=== PATIENT | male | born 1950 | race Caucasian/White ===

== ENCOUNTER 2017-05-12 13:04 | Inpatient (IN) | payer OTHER ==
[~2017-05-12] VITALS: Ht 170.2 cm; Wt 87.5 kg
--- NOTE | ~2017-05-12 | CT2 ---
[facility] A Service of [facility] & [facility] RADIOLOGY TEXT RESULTS PATIENT: ELLSI CURRIE LOCATION: [address]-19 : [birth year] UNIT #: [id number] AGE: [address]: Tiffanie Truong MD SEX: M ORDER DR: [id number] [facility] [address] [place], [place] [address] [id number] I MR#: [id number] #: [id number] NAME: ELLIS CURRIE : 1950 SEX: M STUDY DATE/TIME: 05/13/2017 12:54 UNIT: [facility] ROOM: [facility] STUDY DESCRIPTION: CT Abd and Pelv W Cont Attending Physician: Tiffanie Truong M.D. Ordering Physician: Sage Moore M.D. Primary Care Physician: Scott Ortega M.D. MEDICAL IMAGING REPORT This report is preliminary unless electronic signature is present EXAM CT abdomen and pelvis with contrast, 05/13/2017, 1254 hours. CLINICAL HISTORY 66-year-old man with complaint of abdominal pain. Patient had brain lesions most suggestive of brain metastasis discovered on CT and MRI yesterday. Evaluate for primary tumor. COMPARISON CT abdomen, 06/12/2014. TECHNIQUE Dynamic helical CT images were obtained from the lung bases through the pubic symphysis with intravenous contrast only. Sagittal and coronal reconstructions were performed. Contrast was Isovue-370 100 mL. Total exam DLP for the chest, abdomen, and pelvis exam 1212 mGy-cm. This CT exam was performed with one or more of the following radiation dose reduction techniques: automatic exposure control, adjustment of mA and/or kV according to patient size, and iterative reconstruction. FINDINGS Images through the abdomen demonstrate normal-sized liver without focal liver lesion. The spleen, pancreas, and bile ducts are normal. The gallbladder contains dense material without gallbladder wall thickening or pericholecystic fluid. This is likely sludge. The adrenal glands are normal. The kidneys demonstrate no mass or stone or obstruction. There is diffuse atherosclerotic calcification of the aorta with narrowing of the distal aorta and common iliac artery similar to prior exam. The stomach is not well-distended or opacified but appears normal. There is no small bowel distension or small bowel wall thickening. The appendix STS. [facility] A Service of [facility] RADIOLOGY TEXT RESULTS PATIENT: ELLIS CURRIE LOCATION: [facility]3-19 : 50 UNIT #: [id number] AGE: [address]: Tiffanie Truong MD SEX: M ORDER DR: is normal. The right colon and transverse colon are normal. Descending colon demonstrates no wall thickening or diverticula. There are several colonic diverticula in the sigmoid colon. Wall thickening cannot be excluded. The rectum appears normal. There is no lymphadenopathy in the abdomen or pelvis. There is a Otero catheter in the bladder with air in the bladder. The bladder is moderately well distended. There is bladder wall thickening right greater than left increased from 06/22/2014. Question whether this is related to cystitis. Malignancy cannot be excluded. IMPRESSION 1. There is no liver lesion or evidence of adenopathy in the abdomen or pelvis. 2. Severe diverticulosis of the sigmoid colon. The wall is difficult to assess in this area. Consider followup colonoscopy if not recently performed. 3. There is a Otero catheter in the bladder with air in the bladder, presumably introduced at time of catheter placement. The bladder is moderately well distended with diffuse bladder wall thickening. This wall thickening has increased from 2014. Findings could be related to cystitis. Malignancy cannot be excluded. Consider followup cystoscopy. STAT * RESULT Dictated by... Abiola Bentley M.D. THIS IS AN ELECTRONICALLY VERIFIED REPORT Abiola Bentley M.D. at 05/13/2017 2:30 PM CRISTIAN/vonda TD: 05/13/2017 13:42 JOB #: [id number] MEDICAL IMAGING REPORT Page 1 of 1 COPY
--- NOTE | ~2017-05-12 | EKG ---
PATIENT: ELLIS CURRIE UNIT #: [id number] Ventricular Rate: 64 BPM Atrial Rate: 64 BPM P-R Interval: 154 ms QRS Duration: 94 ms Q-T Interval: 424 ms QTC Calculation(Bezet): 437 ms P Sublimity: 72 degrees Calculated R Sublimity: 58 degrees Calculated T Sublimity: 34 degrees Diagnosis Line: Normal sinus rhythm Diagnosis Line: Normal ECG Diagnosis Line: No previous ECGs available Diagnosis Line: Confirmed by SIMON CARROLL MD ([id number]) on 05/13/2017 Diagnosis Line: 12:07:57 AM INTERPRETING MD: CARLY HATHAWAY
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
--- NOTE | ~2017-05-12 | CR72 ---
[facility] A Service of [facility] & [facility] RADIOLOGY TEXT RESULTS PATIENT: ELLIS CURRIE LOCATION: [address]-19 : [birth year] UNIT #: [id number] AGE: [address]: Tiffanie Truong MD SEX: M ORDER DR: [id number] [facility] [address] [place], [place] [address] [id number] I MR#: [id number] Acc #: [id number] NAME: ELLIS CURRIE : 1950 SEX: M STUDY DATE/TIME: 05/12/2017 13:42 UNIT: [facility] ROOM: [facility] STUDY DESCRIPTION: CR Chest Single View Portable Attending Physician: Tiffanie Truong M.D. Ordering Physician: Concha Grant M.D. Primary Care Physician: Scott Ortega M.D. MEDICAL IMAGING REPORT This report is preliminary unless electronic signature is present EXAM Portable chest, 05/12. INDICATIONS Intubation. Seizures today. History of hypertension. FINDINGS AP portable chest is compared with 10/15/2008. Cardiac and mediastinal contours are normal. Lungs are clear except for granulomatous calcifications. No pneumothorax is seen. ET tube in the mid trachea. IMPRESSION ET tube in mid trachea. No acute findings in the chest. Dictated by... Cecilio Casper Jr., M.D. THIS IS AN ELECTRONICALLY VERIFIED REPORT Cecilio Casper Jr., M.D. at 05/13/2017 8:49 AM MED/ryland TD: 05/12/2017 20:22 JOB #: [id number] MEDICAL IMAGING REPORT Page 1 of 1 COPY
--- NOTE | ~2017-05-12 | CO ---
Unit #: [id number] #: [id number] Patient: ELLIS CURRIE [id number] [address] [place], [place] [address] [id number] I MR#: [id number] NAME: ELLIS CURRIE ROOM: 231 Age: 66 Sex: M Admission Date: 05/12/2017 : 1950 Attending Physician: Tiffanie Truong M.D. Primary Care Physician: Scott Ortega M.D. CONSULTATION REPORT CHIEF COMPLAINT Seizure. HISTORY OF PRESENT ILLNESS A 66-year-old gentleman with history of tobacco use, admitted following seizure, feeling better, found with microhematuria. Urinalysis; 2 to 5 red blood cells per high-power field. CT of the abdomen and pelvis with contrast on 05/13/2017, bladder wall thickening, Otero catheter indwelling. The patient has a history of mild weak stream at baseline. No gross hematuria, bone pain, or weight loss. PAST MEDICAL HISTORY Hypertension and skin cancer, as above. PAST SURGICAL HISTORY Hernia surgery, skin cancer treatment. SOCIAL HISTORY History of tobacco. No alcohol. No recreational drugs. MEDICATIONS Reviewed. REVIEW OF SYSTEMS The patient denies headache, vision change, hearing change, cough, sore throat, chest pain, shortness of breath, diarrhea, constipation, numbness or tingling in the extremities, rashes or easy bruising. PHYSICAL EXAMINATION VITAL SIGNS: Afebrile. Vital signs stable. HEENT: Normocephalic and atraumatic. Extraocular muscles intact grossly. Normal hearing to gross inspection. NECK: Soft, supple. No supraclavicular lymphadenopathy. RESPIRATORY: Normal respiratory effort. Normal to palpation. ABDOMEN: Soft, nontender, and nondistended. No CVA tenderness. EXTREMITIES: Full range of motion. No edema in bilateral extremities. PSYCH: Normal mood and affect. NEUROLOGIC: Cranial nerves 2 through 12 are grossly intact. DIAGNOSTIC STUDIES LABORATORY RESULTS: Creatinine 0.8. White blood cell 9.1, hemoglobin 14.8. Urinalysis; 2 to 5 red blood cells per high-power field, 10 to 25 white Unit #: [id number] #: [id number] Patient: ELLIS CURRIE blood cells per high-powered field. No bacteria noted. IMAGING STUDIES: CT of abdomen and pelvis, bladder wall thickening. ASSESSMENT Microhematuria, pyuria, bladder wall thickening, history of tobacco use, weak stream. PLAN Outpatient cystoscopy for further evaluation. Discussed risk of missed malignancy for failure to comply with followup. The patient has agreed to follow up. We will arrange. Dictated by... Arley Clark M.D. BEVERLY/elizabeth TD: 05/15/2017 07:00 JOB #: [id number] CONSULTATION REPORT Page 1 of 1 X Arley Clark MD X CONSULTATION REPORT
--- NOTE | ~2017-05-12 | MR17 ---
[facility] A Service of [facility] & [facility] RADIOLOGY TEXT RESULTS PATIENT: ELLIS CURRIE LOCATION: [address]-19 : [birth year] UNIT #: [id number] AGE: [address]: Tiffanie Truong MD SEX: M ORDER DR: [id number] [facility] [address] [place], [place] [address] [id number] I MR#: [id number] Acc #: [id number] NAME: ELLIS CURRIE : 1950 SEX: M STUDY DATE/TIME: 05/12/2017 21:34 UNIT: [facility] ROOM: [facility] STUDY DESCRIPTION: MR Brain WWo Contrast Attending Physician: Tiffanie Truong M.D. Ordering Physician: Tiffanie Truong M.D. Primary Care Physician: Scott Ortega M.D. MRI CENTER REPORT This report is preliminary unless electronic signature is present. EXAM MRI of the brain with and without contrast, dated 05/12/2017. COMPARISON CT head without contrast dated 05/12/2017. HISTORY Seizure today. High blood pressure and history of (1)_:16___. TECHNIQUE Multisequence, multiplanar imaging of the brain was obtained with and without contrast. GFR measures greater than 60. 18 cc of MultiHance was administered intravenously. FINDINGS Abnormal study. There are enhancing masses in the posterior right occipital cortex and adjacent subcortical white matter measuring 1.3 x 1.3 cm, and in the posterior and superior right temporal cortex at the level of the right sylvian fissure. It measures 6 x 7 mm. Vasogenic edema is noted with both the lesions, worst in the right parietal lobe. There is an enhancing vessel in the left superolateral frontal cortex extending to the subcortical white matter, suggestive of a developmental venous anomaly. No coexisting other vascular anomalies or hemorrhage is seen. Nonspecific, nonenhancing multiple hyperintense T2 signal lesions are noted in the subcortical and periventricular white matter. Vascular flow voids of the nasal cerebral arteries and dural venous sinuses are not occluded in these thicker slices. S-shaped nasoseptal deviation is noted with varying degrees of paranasal sinus mucosal thickening. Mild bilateral mastoid mucosal thickening is also noted, slightly worse in the left. Orbits of the ocular structures are intact. Mild degenerative changes are noted of the cervical spine. Thin coronal T2 sequence through the hippocampal formations demonstrate STS. [facility] A Service of [facility] & [facility] RADIOLOGY TEXT RESULTS PATIENT: ELLIS CURRIE LOCATION: [facility]3-19 : 50 UNIT #: [id number] AGE: [address]: Tiffanie Truong MD SEX: M ORDER DR: normal size, shape and symmetry. No increase in T2 signal within the left hippocampal formation (series 9, images 22) cannot be excluded. IMPRESSION 1. There are 2 enhancing lesions noted in the brain involving the right parietal and posterior right temporal lobes, 1.3 cm in the right parietal lobe with significant surrounding Vasogenic edema. Metastasis is in the differential consideration along with other diseases. Correlate clinically. There is no associated restrictive diffusion to suggest abscess. 2. Scattered multiple hyperintense T2 signal lesions are noted in the brain, predominantly in the supratentorial white matter. These are likely related to mild chronic microvascular ischemic change or migraine based on age and statistics. 3. Faint increased T2 signal within the left hippocampus cannot be excluded. The patient is known to have had seizure. This could be related to it. There is, however, no asymmetrical atrophy or contour change seen. 4. 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 No coexisting other vascular anomalies or hemorrhage. Dictated by... Ly Guthrie M.D. THIS IS AN ELECTRONICALLY VERIFIED REPORT Ly Guthrie M.D. at 05/13/2017 3:29 PM CPR/gz TD: 05/13/2017 12:24 JOB #: [id number] MRI CENTER REPORT Page 1 of 1 COPY
--- NOTE | ~2017-05-12 | A ---
[facility] & [facility] Nutrition Therapy DATE: 05/13/17 Patient: ELLIS CURRIE Physician: LULA Address: [address] [place] [address] Room/Bed: [address], Zip: [place] [address] Admit Date: 05/12/17 Date of : [birth year] Height: 5 7 Weight: 192 87.5 NUTRITIONAL ASSESSMENT: RD initially assessed pt but he is now extubated on healthy heart diet, doing fine with PO intake per RN via bedside swallow eval. Will assess at 10 day length of stay. Pinky Le RD, LD
--- NOTE | ~2017-05-12 | CT55 ---
[facility] A Service of [facility] & [facility] RADIOLOGY TEXT RESULTS PATIENT: ELLIS CURRIE LOCATION: [address]-19 : [birth year] UNIT #: [id number] AGE: [address]: Tiffanie Truong MD SEX: M ORDER DR: [id number] [facility] [address] [place], [place] [address] [id number] I MR#: [id number] Acc #: [id number] NAME: ELLIS CURRIE : 1950 SEX: M STUDY DATE/TIME: 05/13/2017 12:54 UNIT: [facility] ROOM: [facility] STUDY DESCRIPTION: CT Chest W Con Attending Physician: Tiffanie Truong M.D. Ordering Physician: Sage Moore M.D. Primary Care Physician: Sctot Ortega M.D. MEDICAL IMAGING REPORT This report is preliminary unless electronic signature is present EXAM CT chest with contrast 05/13/2017 1254 hours HISTORY 66-year-old man who was found to have a brain lesions on CT and MRI yesterday, likely metastatic disease. Evaluate for primary tumor. Patient complains of pain in the abdomen and pelvis. COMPARISON Chest x-ray 05/12/2017. No prior chest CT TECHNIQUE Dynamic helical CT images were obtained from the thoracic inlet through the adrenal glands. Sagittal and coronal reconstructions were performed. Contrast was Isovue-370 100 mL IV. Total exam DLP for the chest abdomen and pelvis CT scan today is 1212 mGy-cm. This CT exam was performed with one or more of the following radiation dose reduction techniques: automatic control, adjustment of mA and/or kV according to patient size, and iterative reconstruction. FINDINGS The images are mildly degraded by motion artifact. The thyroid appears normal. There is no definite adenopathy in the supraclavicular region. Images through the chest demonstrate a normal appearance to the aorta, pulmonary arteries, cardiac chambers and pericardium. The esophagus appears normal. There is a low-density lymph node anterior to the right mainstem bronchus measuring 1.4 cm with right hilar node measuring 2.5 cm. No other adenopathy is seen. The lung window images demonstrate moderate centrilobular emphysema in the STS. [facility] A Service of [facility] RADIOLOGY TEXT RESULTS PATIENT: ELLIS CURRIE LOCATION: [facility]3-19 : [birth year] UNIT #: [id number] AGE: [address]: Tiffanie Truong MD SEX: M ORDER DR: upper lobes. There is a ground-glass well-circumscribed nodule in the right middle lobe medially on image 31 measuring 10 mm. There is an additional nodule in the right middle lobe on image 34 measuring 8 mm. This is also mostly well-circumscribed. There is linear density at the left greater than right lung base favoring atelectasis. There is a calcified granuloma in the lingular segment of the left upper lobe. Please see separate CT abdomen and pelvis report for findings below the diaphragms. IMPRESSION 1. There is low-density lymph node anterior to the right mainstem bronchus measuring 1.4 cm and right hilar node measuring 2.5 cm. There are 2 nodules in the right middle lobe which are mostly well-circumscribed and noncalcified measuring 10 mm and 8 mm. Findings could represent primary lung carcinoma or metastatic disease. 2. Band-like atelectasis at the left base greater than right base. There is no pleural effusion. 3. There are underlying emphysematous changes. 4. No bone lesions seen. Dictated by... Abiola Bentley M.D. THIS IS AN ELECTRONICALLY VERIFIED REPORT Abiola Bentley M.D. at 05/13/2017 8:27 PM CRISTIAN/calli TD: 05/13/2017 19:28 JOB #: [id number] MEDICAL IMAGING REPORT Page 1 of 1 COPY
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
--- NOTE | ~2017-05-12 | EE ---
Unit #: [id number] #: [id number] Patient: ELLIS CURRIE [id number] [address] [address] [id number] I MR#: [id number] NAME: ELLIS CURRIE : 1950 SEX: M STUDY DATE/TIME: 05/13/2017 UNIT: C2A ROOM: 231 STUDY DESCRIPTION: EEG Attending Physician: Tiffanie Truong M.D. Primary Care Physician: Scott Ortega M.D. NEURODIAGNOSTICS REPORT EXAM EEG DATE OF STUDY 05/13/[address] Tiffanie Truong. REASON FOR THE STUDY Seizures. EEG DESCRIPTION This is an inpatient, portable digital recorded multi-montage adult EEG with leads placed according to the International 10-20 system. Hyperventilation and photic stimulation were not done. This EEG shows diffuse background slowing of 67 Hz. There was movement artifact. There was nothing suggesting seizures. There was nothing suggesting status. No interictal discharges were seen. No clinical events were seen. Hyperventilation and photic stimulation were not done. was seen. The patient was on a ventilator, a little bit agitated. IMPRESSION This is abnormal EEG showing diffuse slowing which is indicative of encephalopathy that is nonspecific. An EEG like this does not rule out epilepsy. Clinical correlation is recommended. Dictated by... Claire Soriano/marcia TD: 05/15/2017 07:25 JOB #: [id number] Unit #: [id number] #: [id number] Patient: ELLIS CURRIE NEURODIAGNOSTICS REPORT Page 1 of 1 X Mark Piña MD NEURODIAGNOSTICS REPORT
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
[~2017-05-12 13:04] MED LIST: AUGMENTIN PO; LIPITOR PO; LISINOPRIL PO; SULAR PO; TYLENOL #3 PO; WALGREENS PHARMACY; ZITHROMAX PO; [UNRECOGNIZED DRUG - REMARK]
[2017-05-12] MEDS ORDERED: ATENOLOL PO (13:53)
[2017-05-12] MEDS ORDERED: PATIENT'S PHARMACY (13:53)
[2017-05-12] MEDS ORDERED: NORVASC10 MG PO (13:53)
[2017-05-12 13:56] LABS: URINE SOURCE CLEAN CATCH
[2017-05-12 14:00] LABS: ARTERIAL BLD GAS O2 SATURATION 88.8 % (90.0-100.0); ARTERIAL BLOOD GAS CARBOXY HB 3.7 %sat (0.0-9.0); ARTERIAL BLOOD GAS HCO3 22.3 mmol/L; ARTERIAL BLOOD GAS MET HB 1.1 %sat (0.0-2.0); ARTERIAL BLOOD GAS pH 7.222 (7.350-7.450)
[2017-05-12 14:01] LABS: URINE APPEARANCE CLOUDY; URINE BILIRUBIN NEG (NEG); URINE BLOOD TRACE (NEG); URINE COLOR YELLOW; URINE GLUCOSE NEG (NEG); URINE KETONE NEG (NEG); URINE LEUKOCYTE ESTERASE NEG (NEG); URINE NITRATE NEG (NEG); URINE PROTEIN 3+ (NEG); URINE UROBILINOGEN 0.2 MG/DL (NEG)
[2017-05-12 14:01] LABS: ARTERIAL BLOOD GAS ALLEN TEST N; ARTERIAL BLOOD GAS ART SITE LEFT RADIAL; ARTERIAL BLOOD GAS DELIVERY VENT; ARTERIAL BLOOD GAS PCO2 54.3 mmHg (35.0-45.0); ARTERIAL BLOOD GAS VENT MODE AC; ARTERIAL DRAW? YES
[2017-05-12 14:03] LABS: CULTURE INDICATED? YES; URINE BACTERIA AUWI NEG (NEGATIVE); URINE SQUAMOUS EPITHELIAL CELL MANY /[HPF]
[2017-05-12 14:03] LABS: BASOPHIL# 0.1 X10e3 (0-0.3); BASOPHIL% 0.9 % (0-2.5); EOSINOPHIL# 0.2 X10e3 (0-0.7); EOSINOPHIL% 2.2 % (0.0-7.0); HEMOGLOBIN 17.1 gm/dL (13.0-16.0); LYMPHOCYTE# 1.3 X10e3 (1.0-3.5); LYMPHOCYTE% 12.4 % (17.0-45.0); MEAN CELL VOLUME 98.2 FL (83-96); MEAN CORPUSCULAR HEMOGLOBIN 33.5 PG (28-34); MEAN CORPUSCULAR HGB CONC 34.1 g/dL (30-36); MEAN PLATELET VOLUME 10.5 FL (6.5-11.5); MONOCYTE# 0.8 X10e3 (0-1.0); MONOCYTE% 7.7 % (3.0-12.0); NEUTROPHIL% 76.8 % (40-75); PLATELET COUNT 120 X10e3 (140-420); RED BLOOD COUNT 5.09 X10e (3.90-5.60); RED CELL DISTRIBUTION WIDTH 12.6 % (11.0-15.5); WHITE BLOOD COUNT 10.4 X10e3 (4.0-10.5)
[2017-05-12 14:05] LABS: DIFF IND NO
[2017-05-12 14:27] LABS: INR 1.1; PARTIAL THROMBOPLASTIN TIME 20.3 SECONDS (23.5-31.3); PROTHROMBIN TIME (PATIENT) 11.4 SECONDS (10.0-11.7)
[2017-05-12 14:28] LABS: ALBUMIN SERUM 4.1 g/dL (3.5-5.0); BILIRUBIN, DIRECT 0.2 mg/dL (0.0-0.2); BILIRUBIN,INDIRECT 0.4 mg/dL (0.0-0.9); BILIRUBIN,TOTAL 0.6 mg/dL (0.2-2.0); CALCIUM SERUM 8.9 mg/dL (8.4-10.2); GLOM FILT RATE Estimated 78.1 mL/min (>60); POTASSIUM 3.7 mmol/L (3.5-5.1); PROTEIN TOTAL SERUM 6.8 g/dL (6.0-8.3)
[2017-05-12 19:08] LABS: AMPHETAMINE NEG (NEG); BARBITURATES NEG (NEG); BENZODIAZEPINES NEG (NEG); COCAINE NEG (NEG); MARIJUANA NEG (NEG); OPIATES NEG (NEG); TRICYCLIC ANTIDEPRESSANTS NEG (NEG); U METHADONE NEG (NEG)
[2017-05-13 04:24] LABS: ARTERIAL BLD GAS O2 SATURATION 98.8 % (90.0-100.0); ARTERIAL BLOOD GAS CARBOXY HB 0.4 %sat (0.0-9.0); ARTERIAL BLOOD GAS HCO3 23.5 mmol/L; ARTERIAL BLOOD GAS MET HB 0.7 %sat (0.0-2.0); ARTERIAL BLOOD GAS PCO2 37.2 mmHg (35.0-45.0)
[2017-05-13 04:32] LABS: ARTERIAL BLOOD GAS ALLEN TEST NORMAL; ARTERIAL DRAW? YES
[2017-05-13 04:33] LABS: ARTERIAL BLOOD GAS ART SITE RIGHT RADIAL; ARTERIAL BLOOD GAS DELIVERY VENT; ARTERIAL BLOOD GAS VENT MODE A/C
[2017-05-13 05:11] LABS: BASOPHIL# 0.1 X10e3 (0-0.3); BASOPHIL% 0.5 % (0-2.5); HEMATOCRIT 47.4 % (38.0-50.0); HEMOGLOBIN 16.2 gm/dL (13.0-16.0); LYMPHOCYTE# 1.2 X10e3 (1.0-3.5); LYMPHOCYTE% 7.2 % (17.0-45.0); MEAN CELL VOLUME 97.3 FL (83-96); MEAN CORPUSCULAR HEMOGLOBIN 33.2 PG (28-34); MEAN CORPUSCULAR HGB CONC 34.1 g/dL (30-36); MEAN PLATELET VOLUME 10.5 FL (6.5-11.5); MONOCYTE# 1.2 X10e3 (0-1.0); MONOCYTE% 6.9 % (3.0-12.0); NEUTROPHIL# 14.6 X10e3 (1.5-7.1); NEUTROPHIL% 85.4 % (40-75); PLATELET COUNT 125 X10e3 (140-420); RED BLOOD COUNT 4.87 X10e (3.90-5.60); RED CELL DISTRIBUTION WIDTH 12.9 % (11.0-15.5)
[2017-05-13 05:12] LABS: DIFF IND YES; WHITE BLOOD COUNT 17.1 X10e3 (4.0-10.5)
[2017-05-13 05:36] LABS: PLATELET ESTIMATE DECREASED (NORMAL); RBC NORMAL YES
[2017-05-13 06:14] LABS: BUN/CREATININE RATIO 13.33; CREATININE SERUM 0.9 mg/dL (0.6-1.4); GLOM FILT RATE Estimated 88.7 mL/min (>60); POTASSIUM 4.6 mmol/L (3.5-5.1)
[2017-05-14 06:00] LABS: BASOPHIL# 0.1 X10e3 (0-0.3); BASOPHIL% 0.7 % (0-2.5); EOSINOPHIL# 0.1 X10e3 (0-0.7); EOSINOPHIL% 0.6 % (0.0-7.0); HEMATOCRIT 45.2 % (38.0-50.0); HEMOGLOBIN 15.3 gm/dL (13.0-16.0); LYMPHOCYTE# 1.5 X10e3 (1.0-3.5); LYMPHOCYTE% 13.2 % (17.0-45.0); MEAN CORPUSCULAR HEMOGLOBIN 33.1 PG (28-34); MEAN CORPUSCULAR HGB CONC 33.8 g/dL (30-36); MEAN PLATELET VOLUME 10.7 FL (6.5-11.5); MONOCYTE# 1.2 X10e3 (0-1.0); MONOCYTE% 10.4 % (3.0-12.0); NEUTROPHIL# 8.5 X10e3 (1.5-7.1); NEUTROPHIL% 75.1 % (40-75); PLATELET COUNT 101 X10e3 (140-420); RED BLOOD COUNT 4.61 X10e (3.90-5.60); RED CELL DISTRIBUTION WIDTH 12.6 % (11.0-15.5); WHITE BLOOD COUNT 11.3 X10e3 (4.0-10.5)
[2017-05-14 06:01] LABS: DIFF IND NO
[2017-05-14 06:50] LABS: BUN/CREATININE RATIO 11.11; CALCIUM SERUM 8.3 mg/dL (8.4-10.2); CREATININE SERUM 0.9 mg/dL (0.6-1.4); GLOM FILT RATE Estimated 88.7 mL/min (>60); POTASSIUM 3.6 mmol/L (3.5-5.1)
[2017-05-14 15:05] LABS: ALBUMIN SERUM 3.7 g/dL (3.5-5.0); BUN/CREATININE RATIO 11.25; CALCIUM SERUM 8.5 mg/dL (8.4-10.2); CREATININE SERUM 0.8 mg/dL (0.6-1.4); GLOM FILT RATE Estimated 93.1 mL/min (>60); POTASSIUM 3.7 mmol/L (3.5-5.1); PROTEIN TOTAL SERUM 6.3 g/dL (6.0-8.3)
[2017-05-15 06:03] LABS: BASOPHIL# 0.1 X10e3 (0-0.3); BASOPHIL% 0.6 % (0-2.5); EOSINOPHIL# 0.2 X10e3 (0-0.7); EOSINOPHIL% 1.9 % (0.0-7.0); HEMOGLOBIN 14.8 gm/dL (13.0-16.0); LYMPHOCYTE# 1.5 X10e3 (1.0-3.5); LYMPHOCYTE% 16.5 % (17.0-45.0); MEAN CELL VOLUME 96.5 FL (83-96); MEAN CORPUSCULAR HEMOGLOBIN 33.3 PG (28-34); MEAN CORPUSCULAR HGB CONC 34.5 g/dL (30-36); MEAN PLATELET VOLUME 10.4 FL (6.5-11.5); MONOCYTE% 10.6 % (3.0-12.0); NEUTROPHIL# 6.4 X10e3 (1.5-7.1); NEUTROPHIL% 70.4 % (40-75); PLATELET COUNT 105 X10e3 (140-420); RED BLOOD COUNT 4.46 X10e (3.90-5.60); RED CELL DISTRIBUTION WIDTH 12.2 % (11.0-15.5); WHITE BLOOD COUNT 9.1 X10e3 (4.0-10.5)
[2017-05-15 06:09] LABS: DIFF IND NO
[2017-05-15 06:49] LABS: CALCIUM SERUM 8.7 mg/dL (8.4-10.2); CREATININE SERUM 0.7 mg/dL (0.6-1.4); GLOM FILT RATE Estimated 98.4 mL/min (>60); POTASSIUM 3.8 mmol/L (3.5-5.1)
== END 2017-05-17 17:20 | DRG 100 ==
LOC: CED 13:04 → CEDOF 14:53 → CICCU3 14:53 → CEDOF 16:46 → CED 16:46 → CICCU3 18:35 → CEDOF 18:35 → C2A 05-14 15:51
PROVIDERS: Emergency Medicine; Internal Medicine Pulmonary Disease; Physician Assistant Medical
PROC: 0BH17EZ Insertion of Endotracheal Airway into Trachea, Via Natural or Artificial Opening (ICD-10-PCS; principal; 2017-05-12)
PROC: 5A1935Z Respiratory Ventilation, Less than 24 Consecutive Hours (ICD-10-PCS; 2017-05-12)
DX: G40.909 Epilepsy, unspecified, not intractable, without status epilepticus (principal); J96.01 Acute respiratory failure with hypoxia; N39.0 Urinary tract infection, site not specified; F17.210 Nicotine dependence, cigarettes, uncomplicated; I10 Essential (primary) hypertension; Z85.828 Personal history of other malignant neoplasm of skin; R31.29 Other microscopic hematuria; V89.2XXA Person injured in unspecified motor-vehicle accident, traffic, initial encounter; D72.829 Elevated white blood cell count, unspecified; T38.0X5A Adverse effect of glucocorticoids and synthetic analogues, initial encounter; G93.9 Disorder of brain, unspecified; R91.8 Other nonspecific abnormal finding of lung field
CPT/HCPCS: 31500; 36415; 36600; 51702; 70450; 70553; 71010; 71260; 74177; 80048; 80053; 80061; 80076; 80307; 81003; 82803; 82947; 85025; 85610; 85730; 87040; 87086; 88108; 93005; 94002; 94003; 94640; 94760; 95816; 96374; 96375; 97161; 97165; 99285; 99406; A9577; C9113; C9254; G8978-GP; G8979-GP; G8980-GP; G8987-GO; G8988-GO; G8989-GO; J0696; J1100; J1650; J1953; J2060; Q9967

== ENCOUNTER → 2017-05-29 | Outpatient (CLI) | payer OTHER ==
[~2017-05-29] MED LIST changes: +ATENOLOL PO; +NORVASC10 MG PO; +PATIENT'S PHARMACY
--- NOTE | ~2017-05-29 | MR17 ---
[facility] A Service of [facility] RADIOLOGY TEXT RESULTS PATIENT: ELLIS CURRIE LOCATION: [facility] : [birth year] UNIT #: [id number] AGE: [address]: Du Lamb MD SEX: M ORDER DR: [id number] [facility] [address] [place], [place] [address] [id number] O MR#: [id number] Acc #: [id number] NAME: ELLIS CURRIE : 1950 SEX: M STUDY DATE/TIME: 05/29/2017 17:16 UNIT: [facility] ROOM: STUDY DESCRIPTION: MR Brain WWo Contrast Attending Physician: Du Lamb M.D. Referring Physician: Du Lamb M.D. Ordering Physician: Du Lamb M.D. Primary Care Physician: Scott Ortega M.D. MRI CENTER REPORT This report is preliminary unless electronic signature is present. EXAM Brain MRI with and without contrast COMPARISON 05/12/2017. 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 Radiation therapy. Assess response. TECHNIQUE Multiplanar imaging of the brain was performed with and without contrast. 17 mL of MultiHance was used. FINDINGS The 2 metastatic lesions in the right cerebral hemisphere noted on the previous scan are again seen. Both have increased slightly in size. The right temporal lobe lesion has increased from 6.2 to 10 mm and the right parietal to parieto-occipital lesion has increased from 1.18 x 1.28 cm to 1.35 x 1.70 cm. Surrounding vasogenic edema has also increased slightly at both sites. No new tumors are seen. No hemorrhages are noted. An incidental venous angioma is again noted on the left. IMPRESSION The 2 metastatic lesions have increased significantly in size since the previous scan. Surrounding vasogenic edema has increased slightly as well. Dictated by... Cecilio Davison M.D. THIS IS AN ELECTRONICALLY VERIFIED REPORT Cecilio Davison M.D. at 06/01/2017 4:35 PM [facility] A Service of [facility] RADIOLOGY TEXT RESULTS PATIENT: ELLIS CURRIE LOCATION: [facility] : [birth year] UNIT #: [id number] AGE: [address]: Du Lamb MD SEX: M ORDER DR: SHORTY/radha TD: 06/01/2017 13:18 JOB #: [id number] MRI CENTER REPORT Page 1 of 1 COPY
== END | disposition home or self-care (01) ==
LOC: CMRI 16:35
DX: C34.90 Malignant neoplasm of unspecified part of unspecified bronchus or lung (principal); C79.31 Secondary malignant neoplasm of brain
CPT/HCPCS: 70553; A9577